=== PATIENT | male | born 1975 | race Caucasian/White ===

== ENCOUNTER 2021-04-17 07:10 | Emergency (ER) | payer OTHER, SELFPAY ==
--- NOTE | ~2021-04-17 | XR_ITS ---
EXAMINATION: XR elbow LT min 3V DATE: 04/17/2021 07:30 INDICATION: Left elbow pain. TECHNIQUE: 4 views of left elbow were obtained. COMPARISON: None. FINDINGS: Bone alignment is normal. No fracture. Joint spaces are well maintained. There is no elbow joint effusion. IMPRESSION: 1. Normal left elbow. Reviewed, dictated and finalized at location A. IMPRESSION: 1. Normal left elbow.
[2021-04-17 07:13] VITALS: BP 159/99; RESP 20; TEMP 36.8; O2SAT 99
--- NOTE | 2021-04-17 08:19 | ED.UPPEXIN ---
HPI - Extremity Injury (Upper) General Chief Complaint: Extremity Injury, Upper Stated Complaint: left arm pain Time Seen by Provider: 04/17/21 07:32 Source: patient Mode of arrival: ambulatory Limitations: no limitations History of Present Illness HPI narrative: Patient is 45 years old white male presents with pain around left elbow started yesterday after lifting heavy stuff. Patient denies other injuries. Pain worse with supination and pronation of the left forearm. Related Data Home Medications Medication Instructions Recorded Confirmed No Home Medications 04/17/21 04/17/21 Allergies Allergy/AdvReac Type Severity Reaction Status Date / Time No Known Allergies Allergy Verified 04/17/21 07:18 Review of Systems Review of Systems: Narrative: CONSTITUTIONAL: Denies fever, chills, or sweats. EYES: Denies visual changes, redness, or discharge. ENT: Denies rhinorrhea, congestion, sore throat, or otalgia. CARDIOVASCULAR: Denies chest pain, palpitations, or edema. RESPIRATORY: Denies cough or dyspnea. GASTROINTESTINAL: Denies abdominal pain, nausea, vomiting, or diarrhea. GENITOURINARY: Denies dysuria or hematuria. SKIN: Denies rash or itching. MUSCULOSKELETAL: Denies back pain, joint pain, or myalgia. NEUROLOGIC: Denies headache, numbness, or weakness. PSYCHIATRIC: Denies anxiety or depression. PMFSH Family History Family History Father Family history of premature coronary heart disease Family history of obesity Hypertension Asthma Patient's father is in good health Family history of hearing loss Acute myocardial infarction Mother Family history of migraine headaches Hypertension Patient's mother is in good health Grandparent Hypertension Family history of Alzheimer's disease Sibling Asthma Patient's sister is in good health Patient's brother is in good health Other Family history of malignant neoplasm Social History Social History Alcohol intake: current Gender identity (if verbalized by the patient): Male Exam Narrative: Exam Narrative: General appearance: Well-developed, well-nourished Vascular: Normal peripheral pulses, normal capillary refill. Musculoskeletal: Normal range of motion, nontender back Neurologic: Alert and oriented ?3 Course Course Emergency Course: Stable Vital Signs Vital signs: Vital Signs Temperature 36.8 C 04/17/21 07:13 Respiratory Rate 04/17/21 07:13 Blood Pressure 159/99 H 04/17/21 07:13 Pulse Oximetry 99 04/17/21 07:13 Temperature 36.8 C 04/17/21 07:13 Respiratory Rate 04/17/21 07:13 Blood Pressure 159/99 H 04/17/21 07:13 Pulse Oximetry 99 04/17/21 07:13 MDM - Extremity Injury (Upper) Imaging Data Radiologist's impression: Impressions Elbow X-Ray 04/17/21 07:46 IMPRESSION: 1. Normal left elbow. Critical Care Time Critical Care Time Critical Care Time: No Discharge Plan Discharge Clinical Impression: Muscle strain Patient Disposition: Home, Self-Care Condition: Stable Instructions: Muscle Strain (DC) Additional Instructions: Return if symptoms are worsening , call your family physician for appointment, take Tylenol as as needed for aches and pain, continue home medications., Take ibuprofen 600 to 6-hour as needed Prescriptions: No Action No Home Medications RF: 0 Follow-up/Referrals: PHYSICIAN,CLINIC DIRECTOR [Primary Care Provider] - Robert Salmeron MD [Physician] -
[2021-04-17] MEDS: IBUPROFEN 600 MG TABLET PO (08:38)
[2021-04-17] MEDS: ACETAMINOPHEN 325 MG TABLET 650 MG PO (08:38)
== END 2021-04-17 08:42 | disposition home or self-care (01) ==
PROVIDERS: Emergency Provider Emergency Medicine
DX: S46.812A Strain of other muscles, fascia and tendons at shoulder and upper arm level, left arm, initial encounter (principal); X50.0XXA Overexertion from strenuous movement or load, initial encounter
CPT/HCPCS: 73080; 99283; A9270